=== PATIENT | male | born 2000 | race Caucasian/White ===

== ENCOUNTER 2024-07-03 10:45 | Day surgery (SDC) | payer BC ==
[2024-06-30 13:02] VITALS: BMI 36.9
[2024-07-03] MEDS ORDERED: Bupivacaine HCl 0.5%/Epinephrine 1:200,000/PF 30 ml Vial ONE (11:15)
[2024-07-03] MEDS ORDERED: Ondansetron PF 4 MG/2 ML Vial ONE (11:44)
[2024-07-03] MEDS ORDERED: Dexamethasone 20 MG/5 ML VIAL ONE (11:44)
[2024-07-03] MEDS ORDERED: Lidocaine 1% PF 5 ML VIAL ONE (11:44)
[2024-07-03] MEDS ORDERED: Rocuronium Bromide 10 MG/ML (10ML VIAL) ONE (11:44)
[2024-07-03] MEDS ORDERED: PROPOFOL 200 MG/20 ML VIAL ONE (11:44)
[2024-07-03] MEDS ORDERED: Sodium Chloride 0.9% 1,000 ML IV SCH (17:45)
== END 2024-07-03 15:50 | disposition home or self-care (01) ==
LOC: SDC 10:45
PROVIDERS: ATTEND Orthopaedic Surgery
PROC: 0PSJ04Z Reposition Left Radius with Internal Fixation Device, Open Approach (ICD-10-PCS; principal; 2024-07-03)
DX: S52.122A Displaced fracture of head of left radius, initial encounter for closed fracture (principal); L40.9 Psoriasis, unspecified; Z90.49 Acquired absence of other specified parts of digestive tract; W00.0XXA Fall on same level due to ice and snow, initial encounter
CPT/HCPCS: C1713; C1889; J1100; J2405; J2704